=== PATIENT | male | born 1950 | race Caucasian/White ===

== ENCOUNTER → 2022-10-23 | Outpatient (CLI) | payer OTHER ==
--- NOTE | 2022-10-24 05:08 | MR ---
EXAMINATION TYPE: MR shoulder LT wo con DATE OF EXAM: 10/23/2022 COMPARISON: None HISTORY: Left shoulder pain, S/P fall. Multiplanar multiecho imaging of the left shoulder without contrast. There is some thickening and increased signal in the supraspinatus tendon over the humeral head. No retraction. The glenoid jaclyn appear intact. There is some thickening in the signal in the subscapularis tendon. The biceps tendon is intact. The infraspinatus tendon is intact. There is spurring at the AC joint wi th subacromial impingement. No fracture seen. There is a 1 cm area of degenerative cyst formation in the greater tuberosity of the humerus. IMPRESSION: Thickening and fluid signal in the supraspinatus tendon related to multiple tears and full-thickness tear There is thickening and increased signal in the subscapularis tendon consistent with multiple tears a nd tendinitis. Spurring at the AC joint with subacromial impingement on the supraspinatus tendon and muscle.
== END | disposition home or self-care (01) ==
LOC: RADMRIMAIN 11:04
PROVIDERS: ATTEND Orthopaedic Surgery
DX: M75.112 Incomplete rotator cuff tear or rupture of left shoulder, not specified as traumatic (principal); M25.712 Osteophyte, left shoulder; M75.82 Other shoulder lesions, left shoulder; M25.812 Other specified joint disorders, left shoulder

== ENCOUNTER 2022-12-25 08:09 | Day surgery (SDC) | payer OTHER ==
--- NOTE | 2022-12-24 09:04 | P.HPOR ---
History of Present Illness H&P Date: 12/24/22 Chief Complaint: Left shoulder pain The patient is 72-year-old male who presents with left shoulder pain and weakness after a fall approximately 5 months ago. He has a difficult time raising his arm over his head. He is having night symptoms. He denies significant previous problems. Review of Systems As per HPI Past Medical History Past Medical History: No Reported History Additional Past Medical History / Comment(s): being worked up for autoimmune issues gets frequent canker sore and throat ulcers steroids clear the ulcers, currently has one History of Any Multi-Drug Resistant Organisms: None Reported Past Surgical History: Hernia Repair Additional Past Surgical History / Comment(s): throat surg for sleep apnea, mart inquinal hernia repair Past Anesthesia/Blood Transfusion Reactions: No Reported Reaction Smoking Status: Former smoker Medications and Allergies Home Medications Medication Instructions Recorded Confirmed Type No Known Home Medications 12/23/22 12/23/22 History Allergies Allergy/AdvReac Type Severity Reaction Status Date / Time ibuprofen Allergy Severe Rash/Hives Verified 12/23/22 11:24 codeine AdvReac Nausea & Verified 12/23/22 11:24 Vomiting Physical Examination - Shoulder left Tenderness with palpation: anterior Pain: with abduction, with forward flexion ROM: forward flexion: 80 degrees ROM: internal rotation: lower lumbar ROM: external rotation: 50 degrees Strength: abduction: 3/5 Strength: forward flexion: 3/5 Tests: internal impingement tests: positive, external impingment tests: positive Results The patient is a well-developed well-nourished male proximal 6 foot 1, 185 pounds of mesomorphic Simmons. HEENT exam is nonfocal, neck is supple. He is tender about the left shoulder anterior subacromial space. Moderate crepitus is noted. Passive forward elevation is 160. His distal neurovascular appears intact in the left upper extremity. - Diagnostic results Shoulder MRI: image reviewed (Left shoulder MRI shows evidence of a full- thickness rotator cuff tear without significant retraction.) Assessment and Plan Assessment: Left rotator cuff tearsymptomatic Plan: I talked to the patient with regard to his condition along with treatment options. He remains quite symptomatic having pain and weakness after this acute injury. After thorough discussion he opted to proceed with surgery. We'll plan to proceed with arthroscopic evaluation with probable subacromial decompression and rotator cuff repair. We will likely perform that as an outpatient procedure. Risks and benefits were discussed at length in layman's terms.
[~2022-12-25 08:09] MED LIST: DEXAMETHASONE SOD PHOSPHATE 4 MG/ML 1 ML VIAL IV ONE; HYDROmorphone 0.5 MG/0.5 ML SYRINGE IVP PRN; LACTATED RINGERS 1,000 ML IV SCH; LIDOCAINE 1% (10MG/ML) FOR IV START INTRADERMA PRN; MIDAZOLAM 2 MG/2 ML VIAL IV PRN; ONDANSETRON 4 MG/2 ML VIAL IVP ONE
[2022-12-25] MEDS ORDERED: LACTATED RINGERS 1,000 ML IV ONE (08:22)
[2022-12-25 08:27] VITALS: TEMP 97.5
[2022-12-25] MEDS ORDERED: MIDAZOLAM 2 MG/2 ML VIAL IVP ONE (09:28)
--- NOTE | 2022-12-25 09:42 | P.ANPRN ---
Procedure Note - Anesthesia - Nerve Block Performed Left Interscalene Single Time Out Performed: Yes ([id number]) Date of Procedure: 12/25/22 Procedure Start Time: Procedure Stop Time: Location of Patient: PreOp Indication: Acute Post-Operative Pain, Analgesia, Dx/Pain Location, Requested by Surgeon Sedation Type: Sedate with meaningful contact maintained Preparation: Sterile Prep Position: Supine Needle Types: Pajunk Needle Gauge: 21 Ultrasound used to visualize needle placement: Yes Ultrasound used to observe medication spread: Yes Injectate: 0.5% Ropivacaine (see comment for volume) Blood Aspirated: No Pain Paresthesia on Injection Noted: No Resistance on Injection: Normal Image Stored and Saved: Yes Events: Uneventful and Well Tolerated (with 4mg of dexamethasone)
[2022-12-25] MEDS ORDERED: fentaNYL (PF) 50 MCG/ML 2 ML AMP ONE (09:56)
[2022-12-25] MEDS ORDERED: ROPIVACAINE 5 MG/ML 30 ML VIAL ONE (09:56)
[2022-12-25] MEDS ORDERED: PROPOFOL 10 MG/ML 20 ML VIAL IV ONE (09:56)
[2022-12-25] MEDS ORDERED: ePHEDrine 50 MG/ML 1 ML VIAL ONE (09:56)
[2022-12-25] MEDS ORDERED: SUCCINYLCHOLINE CHLORIDE 200 MG/10 ML VIAL IV ONE (09:56)
[2022-12-25] MEDS ORDERED: DEXAMETHASONE SOD PHOSPHATE 4 MG/ML 1 ML VIAL ONE (09:56)
[2022-12-25] MEDS ORDERED: LIDOCAINE 2% INJ 20 MG/ML (2 ML VIAL) ONE (09:56)
[2022-12-25] MEDS ORDERED: EPINEPHrine (PF) 1 ML in SODIUM CHLORIDE 0.9% IRRIGATIO 3,000 ML IRRIGATION ONE ×8 (10:10)
--- NOTE | 2022-12-25 11:29 | P.OP ---
Date of Procedure: 12/25/22 Preoperative Diagnosis: Left shoulder impingement/symptomatic rotator cuff tear Postoperative Diagnosis: Same in addition to acromioclavicular joint arthritis Procedure(s) Performed: Left shoulder arthroscopic subacromial decompression/distal clavicular re section/rotator cuff repair Implants: Arthrex 4.75 mm swivel lock anchor 2 Anesthesia: ata CACERES Surgeon: Reji [employer] #1: David Godwin Estimated Blood Loss (ml): 10 Pathology: none sent Condition: stable Disposition: PACU Indications for Procedure: The patient is a 72-year-old male who presents with progressive left shoulder pain after a previous fall despite conservative measures. A discussion of the risks and benefits of operative intervention versus continued conservative measures was made with the patient. He opted to proceed with surgery. Ope rative risks to include infection, neurovascular injury, development of blood clots, possible postoperative stiffness, possible tendon rerupture and need for subsequent procedures was discussed. Informed consent was obtained. Operative Findings: As below Description of Procedure: The patient was brought to the operating room, and after induction of general anesthesia was placed in a beachchair position. A preoperative interscalene block was placed for postoperative analgesia. I examined the left shoulder. There was no gross block to passive motion or gross glenohumeral instability. The left upper extremity was prepped and draped in normal fashion. The bony outlines the acromion, distal clavicle, and coracoid process were outlined with a skin marker. The glenohumeral joint was inflated with 50 mL of saline utilizing a spinal needle from posterior approach. A posterior portal was made through a 5 mm skin incision 1 cm medial and inferior to the posterior lateral border time. A blunt trocar was used to easily into the joint. Diagnostic arthroscopy was performed. An anterior portal was made just lateral to the coracoid process entering the joint above the subscapularis tendon. The subscapularis tendon appeared to be intact. Anterior labrum was intact. The inferior recess was inspected. The posterior labrum was intact. The intra- articular portion of the biceps appeared intact. The superior labrum was intact. On inspection the rotator cuff, a full-thickness tear involving the midportion the supraspinatus tendon was noted. The arthroscope was placed into the subacromial space.. A lateral portal was made 2 centimeters inferior to the anterior lateral border of the acromion. The rotator cuff was then mobilized with a soft tissue grasper. This was then easily brought back to the greater tuberosity. The soft tissue on the undersurface of the acromion was debrided with a motorized shaver and electrocautery clearly defining the anterior medial and lateral borders as well as the distal clavicle. An anterior inferior acromioplasty was performed with a motorized harlan starting anterolateral, then extending this posteriorly, then extending this medially. I converted to a flat acromion and this was verified in the posterior and lateral viewing portals. There was impingement into the subacromial space secondary to distal clavicular inferior spurring. The inferior portion of the distal clavicle was resected along with 2-3 mm of the entire distal clavicle. The greater tuberosity was lightly decorticating with a shaver down to a bleeding bony surface. An accessory superior lateral portal was made just off the lateral edge of the acromion for anchor placement. A 4.75 mm swivel lock anchor preloaded with fiber tape was then placed just off the articular surface with the appropriate starting awl. Good purchase was obtained. These fiber tapes were then passed the rotator cuff with a scorpion suture passer. A 4.75 mm swivel lock anchor was placed laterally after appropriately tensioning the sutures. Good purchase was obtained. Final arthroscopic view showed adequate compression at the footprint. The arthroscope was then removed. The portals were closed with simple 3-0 nylon sutures. A sterile dressing was applied in addition to a sling. The patient was then awoken from general anesthesia and transferred to recovery room in good condition. Blood loss was estimated at 10 mL. No complications were incurred. Sponge and needle counts were correct in the case. David DAILEY assisted and the major components of the case to include arm positioning, anchor placement, and rotator cuff repair.
[2022-12-25 13:28] VITALS: BP 131/57; PULSE 68; RESP 20
== END 2022-12-25 13:45 | disposition home or self-care (01) ==
LOC: OR 08:09
PROVIDERS: ATTEND Orthopaedic Surgery
DX: M75.42 Impingement syndrome of left shoulder (principal); M75.102 Unspecified rotator cuff tear or rupture of left shoulder, not specified as traumatic; M19.012 Primary osteoarthritis, left shoulder; G89.18 Other acute postprocedural pain; Z98.890 Other specified postprocedural states; Z87.891 Personal history of nicotine dependence; Z88.5 Allergy status to narcotic agent; Z88.8 Allergy status to other drugs, medicaments and biological substances
CPT/HCPCS: 64415; 76942; 29826; 29827; 29824; C1713; C1894; J2250; J0330; J1100; J0690; J2405; J0171; J3010; J2795; J2704; J1170; J2001